=== PATIENT | female | born 1945 ===

== ENCOUNTER 2017-08-28 05:10 | Day surgery (SDC) | payer OTHER ==
[~2017-08-28 05:10] MED LIST: CLONAZEPAM0.5 M1 PO; DILTIAZEM 24HR120 MG PO; FLOVENT DISKU100 MCG IH; LIPITOR20 MG PO; LOFIBRA PO; M.V.I. ADULT10 ML IV; PROBIOTIC1 EAC1 PO; PROVENTIL HFA6.7 GM IH; RESTORIL30 M1 PO; VENTOLIN HFA18 GM; VITD PO; ZOLOFT25 MG PO
[2017-08-28] MEDS ORDERED: MACROBID 100 M100 MG PO (08:50)
[2017-08-28] MEDS ORDERED: ULTRACET PO (08:51)
== END 2017-08-28 12:50 | disposition home or self-care (01) ==
LOC: CIR.AMB 05:10
DX: N81.3 Complete uterovaginal prolapse (principal)